=== PATIENT | male | born 2000 | race African-American/Black ===

== ENCOUNTER 2020-12-26 09:49 | Emergency (ER) | payer SELFPAY ==
[~2020-12-26] VITALS: Ht 170.2 cm; Wt 59.0 kg
[2020-12-26] MEDS ORDERED: CEFTRIAXONE 500 MG VIAL IM ONE (10:15)
[2020-12-26] MEDS ORDERED: AZITHROMYCIN 250 MG TAB PO ONE (10:15)
[2020-12-26] MEDS ORDERED: CEPHALEXIN500 MG PO (10:22)
[2020-12-26] MEDS ORDERED: LIDOCAINE HCL 1% LOCAL INJ 20 ML VIAL ONE (10:33)
[2020-12-26] MEDS ORDERED: DOXYCYCLINE HY100 MG PO (10:35)
== END 2020-12-26 11:15 | disposition home or self-care (01) ==
LOC: FSED 09:53
DX: R31.9 Hematuria, unspecified (principal); A64 Unspecified sexually transmitted disease
CPT/HCPCS: 81003; 99283; J0696; J2001